=== PATIENT | male | born 1995 | race Caucasian/White ===

== ENCOUNTER 2017-03-08 20:53 | Emergency (ER) | payer OTHER ==
[~2017-03-08] VITALS: Ht 177.8 cm; Wt 100.0 kg
[2017-03-08 21:25] VITALS: BP 136/78
[2017-03-08] MEDS ORDERED: HYDROmorphone 1 MG/ML (DILAUDID) SYRINGE IM ONE (21:25)
[2017-03-08] MEDS ORDERED: ONDANSETRON 4 MG (ZOFRAN) ORAL DISSOLVE TAB PO ONE (21:25)
[2017-03-08] MEDS ORDERED: HYDROmorphone 1 MG/ML (DILAUDID) SYRINGE ONE (22:28)
--- NOTE | 2017-03-08 22:28 | Diagnostic Imaging Report ---
INDICATION: Trauma, injury. Moving a brake drum off trailer, injury to knee, now with pain. TECHNIQUE: 5 views of the right knee. CORRELATION STUDY: None FINDINGS: Osseous structures appear to be intact. No acute fracture. Alignment anatomic. Joint spaces maintained. There is, however, prominent soft tissue density along the anterior aspect of the knee and patella. IMPRESSION: 1. Negative for acute bony abnormality of the knee. Soft tissue edema present. Dictated by: Dictated on workstation # [id number]
[2017-03-08] MEDS ORDERED: ONDANSETRON 4 MG (ZOFRAN) ORAL DISSOLVE TAB ONE (22:29)
[2017-03-08] MEDS ORDERED: TRM50T PO (22:40)
[2017-03-08] MEDS ORDERED: ED- TRAMADOL 50 MG (ULTRAM) 6 TABLETS/BTL PO ONE (22:45)
== END 2017-03-08 23:09 | disposition home or self-care (01) ==
LOC: ED 20:57
DX: S83.004A Unspecified dislocation of right patella, initial encounter (principal); X50.1XXA Overexertion from prolonged static or awkward postures, initial encounter; Y93.89 Activity, other specified; Y92.89 Other specified places as the place of occurrence of the external cause; Y99.0 Civilian activity done for income or pay
CPT/HCPCS: 73564; 99283; L1830

== ENCOUNTER → 2017-03-08 | Outpatient (REF) ==
[~2017-03-08] MED LIST: TRM50T PO
== END ==
LOC: EUOP 21:12
PROVIDERS: ATTEND Emergency Medicine
DX: Z02.89 Encounter for other administrative examinations (principal); Z02.83 Encounter for blood-alcohol and blood-drug test